=== PATIENT | female | born 1995 | race African-American/Black ===

== ENCOUNTER 2024-11-04 14:18 | Emergency (ER) | payer OTHER ==
[~2024-11-04] VITALS: Ht 160 cm; Wt 75.4 kg
[2024-11-04] MEDS ORDERED: PREDNISONE20 MG PO (18:16)
[2024-11-04 18:22] VITALS: PULSE 91; RESP 18; TEMP 98.6
[2024-11-04 18:28] VITALS: BP 116/68; PULSE 91; RESP 18; TEMP 98.6; O2SAT 100
== END 2024-11-04 18:25 | disposition home or self-care (01) ==
LOC: FSED 16:04
DX: S39.012A Strain of muscle, fascia and tendon of lower back, initial encounter (principal); X50.0XXA Overexertion from strenuous movement or load, initial encounter; Y92.89 Other specified places as the place of occurrence of the external cause
CPT/HCPCS: 72131; 99284